=== PATIENT | female | born 2000 | race Two or more races ===

== ENCOUNTER → 2025-02-12 | Outpatient (CLI) | payer MEDICAID, SELFPAY ==
--- NOTE | 2025-02-12 15:15 | XR_ITS ---
Examination: MRI of brain without intravenous contrast. MRI brain with intravenous contrast. Date and time of exam:February 12, 2025, 1408 hours Comparison July 01, 2023 INDICATIONS: Sharp headaches dizziness 5 years, family history high-grade glioma Technique: Multiple axial and sagittal images of the brain to been obtained. Siemens high-resolution 1.52 Nohemi short bore scanner utilized. Sagittal sections, T1 weighted images, TR 500, TE 14, are performed. Axial sections proton-density and T2-weighted images have been obtained. Inversion recovery axial images, TR 9260, TE 111, TR 2500. Diffusion weighted images, axial sections, TR 4800, TE 128, B value 1000. Axial sections, ADC map, TR 4800, TE 128. Axial and coronal images were also obtained post 20 cc gadolinium administered intravenously. Findings:: Enlargement of the sella turcica is not present. The optic chiasm and infundibular stalk are not remarkable. There is no localized enlargement of the medulla or tara. Fourth ventricle is normal in position. No subacute area of hemorrhage density is seen. Fourth ventricle is midline. Mass in the cerebellopontine angle region is not evident. 7th and 8th nerve complexes exhibit symmetry Globes are symmetrical Orbital musculature including medial lateral rectus muscles do not exhibit abnormality Increased white matter signal is not seen Effacement of the cortical sulcal markings is not identified. Mass effect upon the ventricular system is not identified. Diffusion-weighted images demonstrate no focus of restricted diffusion Contrast images demonstrate no abnormal cerebellar or cerebral enhancement Impression: Negative for acute hemorrhage mass effect or midline shift No focal intracranial lesion identified No abnormal enhancing cerebellar or cerebral lesions
== END | disposition home or self-care (01) ==
LOC: SMRI 12:56
PROVIDERS: PCP Physician Assistant; Referring Provider Psychiatry & Neurology Neurology; Visit Provider Psychiatry & Neurology Neurology
DX: R51.9 Headache, unspecified (principal)
CPT/HCPCS: 70553; A9579